=== PATIENT | male | born 1975 | race Two or more races ===

== ENCOUNTER 2019-05-10 09:58 | Outpatient (CLI) | payer MEDICAID ==
[~2019-05-10 09:58] MED LIST: NO HOME MEDS
[2019-05-10 10:06] VITALS: BP 150/104
== END 2019-05-10 11:50 | disposition home or self-care (01) ==
LOC: ORTHO 09:58
PROVIDERS: ATTEND Orthopaedic Surgery
DX: S51.812D Laceration without foreign body of left forearm, subsequent encounter (principal); Z87.891 Personal history of nicotine dependence; W54.0XXD Bitten by dog, subsequent encounter
CPT/HCPCS: G0463

== ENCOUNTER 2019-05-18 14:32 | Outpatient (CLI) | payer MEDICAID ==
[2019-05-18 14:40] VITALS: BP 114/73
== END 2019-05-18 15:50 | disposition home or self-care (01) ==
LOC: ORTHO 14:32
PROVIDERS: ATTEND Orthopaedic Surgery
DX: Z48.02 Encounter for removal of sutures (principal); S61.411D Laceration without foreign body of right hand, subsequent encounter; W54.0XXD Bitten by dog, subsequent encounter; Y92.89 Other specified places as the place of occurrence of the external cause
CPT/HCPCS: G0463

== ENCOUNTER 2019-06-20 16:30 | Emergency (ER) | payer MEDICAID ==
[~2019-06-20] VITALS: Ht 182.9 cm; Wt 66.0 kg
[2019-06-20 17:10] VITALS: BP 116/85
[2019-06-20] MEDS ORDERED: acetaminophen 325mg tablet PO ONE (17:45)
[2019-06-20] MEDS ORDERED: ketorolac trometh inj. 60 MG/2 ML VIAL IM ONE (17:45)
[2019-06-20] MEDS ORDERED: ondansetron 4mg rapidly disintigrating tab PO ONE (17:45)
[2019-06-20] MEDS ORDERED: cephalexin 250mg capsule PO ONE (17:45)
[2019-06-20] MEDS ORDERED: DOXYCYCLINE 100MG CAPSULE PO STA (17:45)
[2019-06-20] MEDS ORDERED: bacitracin 15gm ointment TP ONE (17:55)
[2019-06-20] MEDS ORDERED: ONDA4TAB6 PO (18:15)
[2019-06-20] MEDS ORDERED: DOXY100C43 PO (18:15)
[2019-06-20] MEDS ORDERED: CEPH250T PO (18:15)
== END 2019-06-20 19:00 | disposition home or self-care (01) ==
LOC: ER 16:31
DX: L08.89 Other specified local infections of the skin and subcutaneous tissue (principal); F12.90 Cannabis use, unspecified, uncomplicated; Z60.2 Problems related to living alone; Z79.899 Other long term (current) drug therapy
CPT/HCPCS: 96372; 99284; J1885; J2405